=== PATIENT | female | born 1990 | race Caucasian/White ===

== ENCOUNTER → 2023-04-03 07:23 | Outpatient (REF) | payer BC, SELFPAY ==
[2023-04-03 08:01] LABS: % Basophils 0.5 % (0-2); % Eosinophils 3.9 % (0-6); % Immature Granulocytes 0.5 % (0-0.5); % Lymphocytes 48.8 % (20.5-51.1); % Monocytes 14.8 % (1.7-9.3); % Neutrophils 31.5 % (42.2-75.2); Absolute Eosinophils 0.2 10^3/uL (0-0.7); Absolute Lymphocytes 1.9 10^3/uL (1.2-3.4); Absolute Monocytes 0.6 10^3/uL (0.1-0.6); Absolute Neutrophils 1.2 10^3/uL (1.4-6.5); Hematocrit 36.3 % (37.0-47.0); Hemoglobin 12.4 g/dL (12.0-16.0); Mean Corp Hgb Conc. 34.2 g/dL (33.0-37.0); Mean Corpuscular Hgb 29.7 pg (27.0-31.0); Mean Corpuscular Volume 87.1 fL (81.0-99.0); Nucleated Red Blood Cells % 0 %; Platelet Count 288 10^3/uL (130-400); Red Blood Cell Count 4.17 10^6/uL (4.20-5.40); White Blood Cell Count 3.9 10^3/uL (4.8-10.8)
[2023-04-03 08:39] LABS: ALT (SGPT) 24 U/L (0-35); AST (SGOT) 31 U/L (14-36); Albumin 3.7 g/dl (3.5-5.0); Alkaline Phosphatase 66 U/L (38-126); Blood Urea Nitrogen 14 mg/dl (7-17); Calcium 9.1 mg/dl (8.4-10.2); Carbon Dioxide 23 mmol/L (22-30); Chloride 101 mmol/L (98-107); Glucose 92 mg/dl (70-99); HDL Cholesterol 69 mg/dl; Iron 37 ug/dl (37-170); LDL Cholesterol, Calculated 45 mg/dl; Magnesium 1.8 mg/dl (1.6-2.3); Phosphorus 3.5 mg/dl (2.5-4.5); Potassium 3.2 mmol/L (3.5-5.1); Sodium 134 mmol/L (135-145); Total Bilirubin 0.4 mg/dl (0.2-1.3); Total Cholesterol 129 mg/dl (50-199); Total Protein 6.3 g/dl (6.3-8.2); Triglyceride 75 mg/dl (10-149); Very Low Density Lipoprotein 15 mg/dl (0-30); eGFR > 60.00
[2023-04-03 08:49] LABS: Percent Saturation 10 % (20-50); Total Iron Binding Capacity 361 ug/dl (265-497)
[2023-04-03 08:53] LABS: Vitamin D, 25-OH*** 42.8 ng/mL (30-80)
[2023-04-03 09:06] LABS: TSH 6.83 uIU/ml (0.47-4.68)
[2023-04-03 09:10] LABS: Ferritin 29.1 ng/ml (6.24-137)
[2023-04-03 09:42] LABS: Folate 7.8 ng/ml (2.76-20); Vitamin B12 833 pg/ml (239-931)
[2023-04-03 09:59] LABS: Amylase 39 U/L (30-110)
[2023-04-04 21:28] LABS: Hepatitis C Antibody Negative (Negative)
[2023-04-05 12:28] LABS: Zinc 87.2 ug/dL (60.0-120.0)
== END ==
LOC: REG 07:23
PROVIDERS: ATTENDING PHYSICIAN Family Medicine
DX: D50.9 Iron deficiency anemia, unspecified (principal); F50.9 Eating disorder, unspecified; K90.0 Celiac disease; Z15.89 Genetic susceptibility to other disease; Z11.59 Encounter for screening for other viral diseases
CPT/HCPCS: 36415; 80053; 80061; 82150; 82306; 82607; 82728; 82746; 83540; 83550; 83735; 84100; 84443; 84630; 85025; 86803

== ENCOUNTER → 2023-04-10 07:22 | Outpatient (REF) | payer BC, SELFPAY ==
[2023-04-10 08:47] LABS: Free T4 0.96 ng/dl (0.78-2.19)
[2023-04-10 08:59] LABS: TSH 3.76 uIU/ml (0.47-4.68)
[2023-04-11 12:13] LABS: Thyroid Peroxidase Ab (TPO) 40.1 IU/mL (0.0-9.0)
[2023-04-11 12:27] LABS: Thyroglobulin 18.2 ng/mL (1.3-31.8); Thyroglobulin Antibodies 1.1 IU/mL (0.0-4.0)
[2023-04-11 18:48] LABS: Total T3 (Sendout) 106 ng/dL (80-200)
== END ==
LOC: REG 07:22
PROVIDERS: ATTENDING PHYSICIAN Family Medicine
DX: R94.6 Abnormal results of thyroid function studies (principal)
CPT/HCPCS: 36415; 84432; 84439; 84443; 84480; 86376; 86800

== ENCOUNTER → 2023-05-10 07:41 | Outpatient (REF) | payer BC, SELFPAY ==
[2023-05-10 08:19] LABS: % Basophils 1.2 % (0-2); % Eosinophils 4.2 % (0-6); % Immature Granulocytes 0.2 % (0-0.5); % Lymphocytes 43.2 % (20.5-51.1); % Monocytes 11.1 % (1.7-9.3); % Neutrophils 40.1 % (42.2-75.2); Absolute Basophils 0.1 10^3/uL (0-0.2); Absolute Eosinophils 0.2 10^3/uL (0-0.7); Absolute Lymphocytes 1.9 10^3/uL (1.2-3.4); Absolute Monocytes 0.5 10^3/uL (0.1-0.6); Absolute Neutrophils 1.7 10^3/uL (1.4-6.5); Hematocrit 34.8 % (37.0-47.0); Hemoglobin 11.8 g/dL (12.0-16.0); Mean Corp Hgb Conc. 33.9 g/dL (33.0-37.0); Mean Corpuscular Hgb 29.5 pg (27.0-31.0); Nucleated Red Blood Cells % 0 %; Platelet Count 348 10^3/uL (130-400); Red Cell Dist. Width 14.2 % (11.5-14.5); White Blood Cell Count 4.3 10^3/uL (4.8-10.8)
[2023-05-10 08:42] LABS: Blood Urea Nitrogen 18 mg/dl (7-17); Calcium 9.6 mg/dl (8.4-10.2); Carbon Dioxide 26 mmol/L (22-30); Chloride 104 mmol/L (98-107); Glucose 92 mg/dl (70-99); Iron 66 ug/dl (37-170); Potassium 4.5 mmol/L (3.5-5.1); Sodium 139 mmol/L (135-145); eGFR > 60.00
[2023-05-10 08:51] LABS: Percent Saturation 17 % (20-50); Total Iron Binding Capacity 371 ug/dl (265-497)
[2023-05-10 09:13] LABS: Cortisol, Random 9.5 ug/dl
[2023-05-10 09:17] LABS: Ferritin 16.5 ng/ml (6.24-137)
== END ==
LOC: REG 07:41
PROVIDERS: ATTENDING PHYSICIAN Family Medicine
DX: E87.1 Hypo-osmolality and hyponatremia (principal); E87.5 Hyperkalemia; D50.9 Iron deficiency anemia, unspecified
CPT/HCPCS: 36415; 80048; 82533; 82728; 83540; 83550; 85025